=== PATIENT | female | born 1965 | race Caucasian/White ===

== ENCOUNTER → 2017-04-26 | Outpatient (CLI) | payer BC | LOC: MC.RAD 14:40 | DX: Z12.31 Encounter for screening mammogram for malignant neoplasm of breast (principal) ==

== ENCOUNTER → 2018-08-12 | Outpatient (CLI) | payer BC | LOC: MC.RAD 13:14 | DX: Z12.31 Encounter for screening mammogram for malignant neoplasm of breast (principal) ==

== ENCOUNTER → 2019-11-07 | Outpatient (CLI) | payer BC | LOC: MC.RAD 15:12 | DX: Z12.31 Encounter for screening mammogram for malignant neoplasm of breast (principal) ==

== ENCOUNTER → 2020-12-19 | Outpatient (CLI) | payer BC ==
[~2020-12-19] MED LIST: CIPRODEX OT
== END ==
LOC: MC.RAD 12:41
DX: Z12.31 Encounter for screening mammogram for malignant neoplasm of breast (principal)

== ENCOUNTER 2021-02-01 07:47 | Emergency (ER) | payer BC ==
[~2021-02-01] VITALS: Ht 165.1 cm; Wt 56.8 kg
[2021-02-01 07:58] VITALS: BP 138/79; TEMP 98.5
[2021-02-01] MEDS ORDERED: CIPRODEX OT (08:29)
[2021-02-01 08:43] VITALS: PULSE 75
== END 2021-02-01 08:43 | disposition home or self-care (01) ==
LOC: COL.ER 07:47
DX: T16.1XXA Foreign body in right ear, initial encounter (principal); F17.200 Nicotine dependence, unspecified, uncomplicated; W45.8XXA Other foreign body or object entering through skin, initial encounter